=== PATIENT | female | born 1945 | race Caucasian/White ===

== ENCOUNTER 2016-06-13 08:21 | Emergency (ER) | payer OTHER ==
[2016-06-13 08:24] VITALS: RESP 16
[2016-06-13 09:31] LABS: % IMMATURE GRANULYOCYTES 0.6 % (0.0-1.1); ABSOLUTE IMMATURE GRANULOCYTES 0.04 10^3/uL (0.00-0.10); ADD DIFF? NO; ADD MORPH? NO; ADD SCAN? NO; ATYPICAL LYMPHOCYTE FLAG 0 (0-99); FRAGMENT RBC FLAG 0 (0-99); HEMOGLOBIN 13.3 g/dL (12.6-16.3); LEFT SHIFT FLG 0 (0-99); LIPEMIA HEMOLYSIS FLAG 80 (0-99); MEAN CELL HEMOGLOBIN 25.9 pg (27.9-34.1); MEAN CELL HEMOGLOBIN CONCENTR. 31.7 g/dL (32.4-36.7); MEAN CELL VOLUME 81.7 fL (81.5-99.8); MEAN PLATELET VOLUME 10.6 fL (8.7-11.7); PLATELET CLUMPS FLAG 0 (0-99); PLATELET COUNT 233 10^3/uL (150-400); RED BLOOD CELL COUNT 5.14 10^6/uL (4.18-5.33); RED CELL DISTRIBUTION WIDTH 14.6 % (11.5-15.2)
[2016-06-13 09:34] LABS: COLOR YELLOW; LEUKOCYTE ESTERASE,URINE NEGATIVE (NEGATIVE); NITRITE,URINE NEGATIVE (NEGATIVE)
[2016-06-13 09:38] LABS: MUCUS TRACE /lpf (NONE-1+)
[2016-06-13 09:50] LABS: ALANINE AMINOTRANSFERASE 55 IU/L (9-52); ALBUMIN 4.7 g/dL (3.5-5.0); ALKALINE PHOSPHATASE 79 IU/L (38-126); ANION GAP 10 mEq/L (8-16); ASPARTATE AMINOTRANSFERASE 32 IU/L (14-46); BILIRUBIN,TOTAL 0.9 mg/dL (0.1-1.4); BILIRUBIN-CONJUGATED 0.4 mg/dL (0.0-0.5); BILIRUBIN-UNCONJUGATED 0.5 mg/dL (0.0-1.1); CALCIUM 10.2 mg/dL (8.5-10.4); CARBON DIOXIDE 24 mEq/l (22-31); CHLORIDE 109 mEq/L (97-110); CREATININE 0.7 mg/dL (0.6-1.0); GLOMERULAR FILTRATION RATE > 60; GLUCOSE 98 mg/dL (70-100); POTASSIUM 4.1 mEq/L (3.5-5.2); SODIUM 143 mEq/L (134-144); TOTAL PROTEIN 7.5 g/dL (6.3-8.2)
[2016-06-13] MEDS ORDERED: IOPAMIDOL (ISOVUE-300) 100 ML BTL IV ONE (10:05)
--- NOTE | 2016-06-13 10:41 | EDPHY ---
H & P Stated Complaint: ABD PAIN - Personal History Current Tetanus/Diphtheria Vaccine: Yes - Medical/Surgical History Hx Asthma: No Hx Chronic Respiratory Disease: No Hx Diabetes: No Hx Cardiac Disease: No Hx Renal Disease: No Hx Cirrhosis: No Hx Alcoholism: No Hx HIV/AIDS: No Hx Splenectomy or Spleen Trauma: No Other PMH: pmh- kidney stones, anxiety. PSH: appy - Social History Smoking Status: Heavy smoker HPI/ROS: Chief complaint: Abdominal pain History of present illness: This is a 70-year-old female who presents to the emergency department for evaluation of abdominal pain. Patient reports she has had symptoms for a number of months. She reports a generalized soreness. She has had associated constipation. She has been treating with MiraLax and Colace but symptoms persist. She reports over the last few days she has had increase in abdominal discomfort. She has noted some mucus in her stools. She denies other associated signs or symptoms including no fevers, no nausea or vomiting, no urinary symptoms. She has seen a primary care doctor who wants her to follow up with Gastroenterology. Review of systems: A 10 point review of systems was obtained and other than described above was negative (Delbert Kingston) - Physical Exam Exam: General Appearance: Alert, nontoxic. Eyes: Pupils equal and round no pallor or injection. ENT, Mouth: Mucous membranes moist. Respiratory: There are no retractions, lungs are clear to auscultation. Cardiovascular: Regular rate and rhythm. Gastrointestinal: Bowel sounds are normal. Abdomen is soft, nondistended, nontender to palpation. Neurological: Alert and oriented x4. Strength and sensation intact and symmetrical. Skin: Warm and dry, no rashes. Musculoskeletal: Neck is supple non tender. Extremities are symmetrical, full range of motion. Psychiatric: Patient is oriented X 3, there is no agitation. (Delbert Kingston) Constitutional: Initial Vital Signs Temperature (C) 36.9 C 06/13/16 08:22 Heart Rate 91 06/13/16 08:22 Respiratory Rate 16 06/13/16 08:22 Blood Pressure 164/90 H 06/13/16 08:22 O2 Sat (%) 96 06/13/16 08:22 O2 Delivery Mode Room Air Allergies/Adverse Reactions: escitalopram oxalate [From Lexapro] Allergy (Verified 02/21/14 15:27) Home Medications: Medication Instructions Recorded ALPRAZolam [Xanax 0.25 MG (*)] 0.25 mg PO DAILY PRN 02/21/14 Cholecalciferol Vit D3 [Vitamin D3 5,000 units PO DAILY 02/21/14 (*)] Hydrocodone/APAP 5/325 [Bandana 1 - 2 tab PO Q4 PRN #30 tab 02/22/14 5/325 (*)] methylPREDNISolone [Medrol Dose 1 each PO AD #1 ea 02/21/15 Sreedhar] Medical Decision Making - Diagnostics Imaging Results: Imaging Impressions Abdomen CT 06/13/16 10:02 Impression: 1. Constipation. 2. No bowel obstruction, diverticulitis, or focal fluid collection. 3. Atherosclerotic aorta and iliac arteries without aneurysm. 4. Possible hypertrophic gastritis with nonspecific diffuse abdominal mucosal hypertrophic changes and wall edema. 5. Recommend GI consult for follow-up upper endoscopy and colonoscopy when the patient's medical condition permits. 6. Degenerative grade 1 anterolisthesis at L4-L5, resulting in mild stenosis. Findings and recommendations discussed with emergency department physician ambulance assistant, Delbert Kingston PA-C at 1045 hours on June 13, 2016. Final report concurs with initial preliminary interpretation. ED Course/Re-evaluation: Patient seen under the supervision of my secondary supervising physician Dr. Gemma Maguire. Patient presents to the emergency department for evaluation of abdominal pain. Patient appears to have had abdominal pain for number of months although it has recently worsened. On presentation patient is nontoxic. Physical exam is unremarkable. Serial abdominal exams have been performed in the emergency room and remain benign. Blood studies and urinalysis are unremarkable. CT scan with constipation and findings most consistent with a gastroenteritis of sorts. I do not believe further emergency department intervention or inpatient management is warranted. Patient is discharged home. She is asked to follow up with her primary care doctor as well as Gastroenterology for further evaluation and care. Return precautions are given. Patient voiced understanding and agreement with plan. (Delbert Kingston) Differential Diagnosis: Included but not limited to gastritis, gastroenteritis, biliary tract disease, pancreatitis, colitis, malignancy, bowel obstruction (Delbert Kingston) Other Provider: The patient was evaluated and managed by the Physician Agency Operator/ Nurse Practitioner. I discussed the patient's presentation and course with the midlevel provider with them and agree with the evaluation. My co-signature indicates that I have reviewed this chart and I agree with the findings and plan of care as documented. I am the secondary supervising physician. (Gemma Maguire) - Data Points Laboratory Results: Laboratory Results 06/13/16 09:15 06/13/16 09:15 06/13/16 06/13/16 06/13/16 09:15 09:15 09:15 WBC 6.56 10^3/uL 10^3/uL (3.80-9.50) RBC 5.14 10^6/uL 10^6/uL (4.18-5.33) Hgb 13.3 g/dL g/dL (12.6-16.3) Hct 42.0 % % (38.0-47.0) MCV 81.7 fL fL (81.5-99.8) MCH 25.9 pg L pg (27.9-34.1) MCHC 31.7 g/dL L g/dL (32.4-36.7) RDW 14.6 % % (11.5-15.2) Plt Count 233 10^3/uL 10^3/uL (150-400) MPV 10.6 fL fL (8.7-11.7) Neut % (Auto) 62.3 % % (39.3-74.2) Lymph % (Auto) 25.9 % % (15.0-45.0) Gila % (Auto) 10.1 % % (4.5-13.0) Eos % (Auto) 0.5 % L % (0.6-7.6) Baso % (Auto) 0.6 % % (0.3-1.7) Nucleat RBC Rel Count 0.0 % % (0.0-0.2) Absolute Neuts (auto) 4.09 10^3/uL 10^3/uL (1.70-6.50) Absolute Lymphs (auto) 1.70 10^3/uL 10^3/uL (1.00-3.00) Absolute Monos (auto) 0.66 10^3/uL 10^3/uL (0.30-0.80) Absolute Eos (auto) 0.03 10^3/uL 10^3/uL (0.03-0.40) Absolute Basos (auto) 0.04 10^3/uL 10^3/uL (0.02-0.10) Absolute Nucleated RBC 0.00 10^3/uL 10^3/uL (0-0.01) Immature Gran % 0.6 % % (0.0-1.1) Immature Gran # 0.04 10^3/uL 10^3/uL (0.00-0.10) Sodium 143 mEq/L mEq/L (134-144) Potassium 4.1 mEq/L mEq/L (3.5-5.2) Chloride 109 mEq/L mEq/L (97-110) Carbon Dioxide 24 mEq/l mEq/l (22-31) Anion Gap 10 mEq/L mEq/L (8-16) BUN 16 mg/dL mg/dL (7-23) Creatinine 0.7 mg/dL mg/dL (0.6-1.0) Estimated GFR > 60 Glucose 98 mg/dL mg/dL (70-100) Calcium 10.2 mg/dL mg/dL (8.5-10.4) Total Bilirubin 0.9 mg/dL mg/dL (0.1-1.4) Conjugated Bilirubin 0.4 mg/dL mg/dL (0.0-0.5) Unconjugated Bilirubin 0.5 mg/dL mg/dL (0.0-1.1) AST 32 IU/L IU/L (14-46) ALT 55 IU/L H IU/L (9-52) Alkaline Phosphatase 79 IU/L IU/L (38-126) Total Protein 7.5 g/dL g/dL (6.3-8.2) Albumin 4.7 g/dL g/dL (3.5-5.0) Lipase 108.0 IU/L IU/L (23-300) Urine Color YELLOW Urine Appearance CLEAR Urine pH 5.0 (5.0-7.5) Ur Specific Randolph 1.014 (1.002-1.030) Urine Protein NEGATIVE (NEGATIVE) Urine Ketones NEGATIVE (NEGATIVE) Urine Blood 2+ H (NEGATIVE) Urine Nitrate NEGATIVE (NEGATIVE) Urine Bilirubin NEGATIVE (NEGATIVE) Urine Urobilinogen NEGATIVE EU EU (0.2-1.0) Ur Leukocyte Esterase NEGATIVE (NEGATIVE) Urine RBC 1-3 /hpf /hpf (0-3) Urine WBC 1-3 /hpf /hpf (0-3) Ur Epithelial Cells NONE SEEN /lpf /lpf (NONE-1+) Urine Mucus TRACE /lpf /lpf (NONE-1+) Urine Glucose NEGATIVE (NEGATIVE) Departure - Departure Disposition: Home, Routine, Self-Care Clinical Impression: Abdominal pain Qualifiers: Abdominal location: generalized Qualified Code(s): R10.84 - Generalized abdominal pain Condition: Good Instructions: Abdominal Pain (ED) Additional Instructions: Follow-up with your primary care doctor and a pattern finisher for continued evaluation and care If symptoms worsen or new symptoms develop return to the emergency room for recheck Referrals: Ovidio Cervantes MD [Primary Care Provider] - As per Instructions Danny Sanchez MD [Medical Doctor] - As per Instructions
[2016-06-13 11:09] VITALS: BP 126/68; PULSE 57; TEMP 98.1; O2SAT 97
== END 2016-06-13 11:08 | disposition home or self-care (01) ==
DX: R10.84 Generalized abdominal pain (principal); F17.200 Nicotine dependence, unspecified, uncomplicated
CPT/HCPCS: 74177; 99285; Q9967

== ENCOUNTER → 2017-04-13 | Outpatient (CLI) | payer OTHER | LOC: BHFA 13:15 | PROVIDERS: ATTEND Internal Medicine Cardiovascular Disease | DX: R07.9 Chest pain, unspecified (principal) ==

== ENCOUNTER → 2017-04-15 | Outpatient (CLI) | payer OTHER | LOC: BHFA 11:30 | PROVIDERS: ATTEND Internal Medicine Cardiovascular Disease | DX: R53.83 Other fatigue (principal) ==

== ENCOUNTER → 2018-04-24 | Outpatient (CLI) | payer OTHER ==
[~2018-04-24] MED LIST: IOPAMIDOL (ISOVUE-300) 100 ML BTL ONE
== END ==
LOC: FIMAGING 08:45
PROVIDERS: ATTEND Family Medicine
DX: R10.30 Lower abdominal pain, unspecified (principal); R11.0 Nausea; R63.0 Anorexia
CPT/HCPCS: 74177; Q9967

== ENCOUNTER → 2018-05-22 | Outpatient (CLI) | payer OTHER | LOC: FIMAGING 12:00 | PROVIDERS: ATTEND Family Medicine | DX: N85.8 Other specified noninflammatory disorders of uterus (principal); R93.89 Abnormal findings on diagnostic imaging of other specified body structures; Z78.0 Asymptomatic menopausal state ==